=== PATIENT | female | born 1945 | race Caucasian/White ===

== ENCOUNTER 2021-11-03 08:40 | Emergency (ER) | payer MEDICARE ==
--- NOTE | 2021-11-03 08:48 | ERPHSYRPT ---
- History of Present Illness Time Seen by Provider: 11/03/21 08:48 Source: patient, family Exam Limitations: no limitations Physician History: This is a 76-year-old white female who presents with right shoulder pain. She describes it as a sharp shooting pain that begins in the joint of her right shoulder and shoots cranially along her right neck and caudally down her right arm. It is intermittent. She denies chest pain and she has had no shortness of breath. Patient denies fall/trauma. Patient does have a history of coronary artery disease, gastroesophageal reflux disease, COPD, chronic angina. Again, she is not having any angina or chest pain at this time. Occurred: days ago (5) Method of Injury: other (No trauma or injury) Severity of Pain-Max: mild (To moderate) Severity of Pain-Current: mild (To moderate) Extremities Pain Location: shoulder: right Modifying Factors: Improves With: movement Associated Symptoms: none, No chest discomfort, No chest pain, No dyspnea, No short of breath, No vomiting Allergies/Adverse Reactions: No Known Drug Allergies Allergy (Verified 11/03/21 08:51) Home Medications: Albuterol Sulfate [Albuterol Sulfate Hfa] 8.5 gm IH DAILY 11/03/21 [History] Apixaban [Eliquis] 5 mg PO DAILY 11/03/21 [History] Atorvastatin Calcium [Lipitor] 10 mg PO DAILY 11/03/21 [History] Linagliptin [Tradjenta] 5 mg PO DAILY 11/03/21 [History] Ropinirole HCl 0.25 mg PO DAILY 11/03/21 [History] Travel Risk - International Travel Have you traveled outside of the country in past 3 weeks: No - Coronavirus Screening Are you exhibiting any of the following symptoms?: No Close contact with a COVID-19 positive Pt in past 14-21 Days: No - Review of Systems Constitutional: No Symptoms Eyes: No Symptoms Ears, Nose, & Throat: No Symptoms Respiratory: No Symptoms Cardiac: No Symptoms Abdominal/Gastrointestinal: No Symptoms Genitourinary Symptoms: No Symptoms Musculoskeletal: Joint Pain (Right shoulder) Neurological: No Symptoms Psychological: No Symptoms Endocrine: No Symptoms Hematologic/Lymphatic: No Symptoms Immunological/Allergic: No Symptoms All Other Systems: Reviewed and Negative - Past Medical History Pertinent Past Medical History: Yes - Past Surgical History Past Surgical History: Yes - Nursing Vital Signs Nursing Vital Signs: Initial Vital Signs Temperature 97.6 F 11/03/21 08:45 Pulse Rate 55 L 11/03/21 08:45 Respiratory Rate 20 11/03/21 08:45 Blood Pressure 171/70 11/03/21 08:45 O2 Sat by Pulse Oximetry 95 11/03/21 08:45 Pain Scale Pain Intensity 4 - Physical Exam General Appearance: no apparent distress, alert, anxiety Eyes, Ears, Nose, Throat Exam: normal ENT inspection, moist mucous membranes Neck Exam: normal inspection, non-tender, supple, full range of motion Cardiovascular/Respiratory Exam: chest non-tender, normal breath sounds, regular rate/rhythm, no respiratory distress Abdominal Exam: non-tender Back Exam: normal inspection, normal range of motion, No CVA tenderness, No vertebral tenderness Shoulder Exam: normal inspection, non-tender, no evidence of injury, normal ROM Elbow/Forearm Exam: normal inspection, non-tender, no evidence of injury, normal ROM Wrist Exam: normal inspection, non-tender, no evidence of injury, normal ROM Hand Exam: normal inspection, non-tender, no evidence of injury, normal ROM Neuro/Tendon Exam: normal sensation, normal motor functions, normal tendon functions Mental Status Exam: alert, oriented x 3, cooperative Skin Exam: normal color, warm, dry SpO2 Interpretation: normal O2 Delivery: Room Air - Course Nursing assessment & vital signs reviewed: Yes EKG Interpreted by Me: RATE (50), Sinus Rhythm, NORMAL AXIS, NORMAL QRS, Other (There is prolonged NC interval. There is no evidence of any acute ischemia) Ordered Tests: Active Orders 24 hr Category Date Time Status EKG-ER Only STAT Care 11/03/21 09:18 Active Sling Application STAT Care 11/03/21 09:44 Active HUMERUS Stat Exams 11/03/21 09:26 Completed SHOULDER Stat Exams 11/03/21 09:00 Completed TROPONIN Q3H Lab 11/03/21 09:58 Completed TROPONIN Q3H Lab 11/03/21 12:30 Ordered TROPONIN Q3H Lab 11/03/21 15:30 Ordered TROPONIN Q3H Lab 11/03/21 18:30 Ordered TROPONIN Q3H Lab 11/03/21 21:30 Ordered Medication Summary Discontinued Medications Generic Name Dose Route Start Last Admin Trade Name Freq PRN Reason Stop Dose Admin Hydrocodone Bitart/Acetaminophen 1 tab 11/03/21 09:44 11/03/21 09:49 Hydrocodone/Apap 5/325 Mg Tablet PO 11/03/21 09:45 1 tab STAT ONE Administration Hydrocodone Bitart/Acetaminophen Confirm 11/03/21 09:49 Hydrocodone/Apap 5/325 Mg Tablet Administered 11/03/21 09:50 Dose 1 tab .ROUTE .STK-MED ONE Lab/Rad Data: Laboratory Results 11/03/21 Range/Units 09:58 Troponin I < 0.012 (0.000-0.034) ng/mL - Progress Progress: pain not gone completely Progress Note: 11/03/21 09:41 Right shoulder x-ray shows no acute fracture or dislocation. There are chronic degenerative changes noted. Right humerus x-ray shows no acute fracture or dislocation. There are chronic degenerative changes noted. Counseled pt/family regarding: lab results, diagnosis, need for follow-up, rad results - Departure Departure Disposition: Home Clinical Impression: Right shoulder pain Condition: Stable Critical Care Time: No Referrals: ROSALINDA MAYORGA MD [Primary Care Provider] - Follow up/PCP as directed Additional Instructions: Take your medication as prescribed. Follow-up with [facility] orthopedic clinic for further evaluation and management. It is a walk-in clinic. No appointment is necessary. It is open Tuesday through Tuesday 8 AM to 10 AM. Prescriptions: Hydrocodone/APAP 5/325 [[place] 5/325 mg] 1 each PO Q12H PRN PRN #6 tablet MDD 2 PRN Reason: Pain
--- NOTE | 2021-11-03 09:36 | XRAY ---
Indication: Pain 5 days. No known injury. Comparison: None 3 view right shoulder demonstrates mild osteopenia, mild AC degenerative arthropathy, faint ossifications superior to humeral head presumed sequela to old injury/inflammation, and CABG surgery. No other bony, articular, or soft tissue abnormalities.
--- NOTE | 2021-11-03 09:38 | XRAY ---
Indication: Pain 5 days. No known injury. Comparison: None 2 view right humerus demonstrates mild osteopenia and mild acromioclavicular degenerative arthropathy. No other bony, articular, or soft tissue abnormalities.
[2021-11-03] MEDS ORDERED: NORCO 5/325 MG PO ONE (09:44)
[2021-11-03 09:48] VITALS: O2SAT 98
[2021-11-03] MEDS ORDERED: NORCO 5/325 MG ONE (09:49)
[2021-11-03 10:14] VITALS: BP 171/85; PULSE 57
== END 2021-11-03 10:57 | disposition home or self-care (01) ==
LOC: ED 08:40
DX: M25.511 Pain in right shoulder (principal); J44.9 Chronic obstructive pulmonary disease, unspecified; Z79.01 Long term (current) use of anticoagulants; Z79.899 Other long term (current) drug therapy; Z79.891 Long term (current) use of opiate analgesic
CPT/HCPCS: 36415; 73030; 73060; 84484; 93005; 99284; A9270-GY